=== PATIENT | female | born 1945 | race Caucasian/White ===

== ENCOUNTER 2021-07-27 11:54 | Emergency (ER) | payer MEDICARE, BC ==
[~2021-07-27] VITALS: Ht 167.6 cm; Wt 64.0 kg
--- NOTE | 2021-07-27 12:16 | NUR ---
[facility] GLF C/O RT WRIST PAIN, HEAD INJURY -KO. RATES PAIN 4/10. IN ROOM AIR AND DENIES SOB. RESPIRATION REGULAR AND UNLABORED. WILL CONTINUE T MONITOR THE PATIENT.
--- NOTE | 2021-07-27 12:18 | NUR ---
DR HOOK AT THE BEDSIDE
--- NOTE | 2021-07-27 12:43 | NUR ---
X-RAY TECH AT THE BEDSIDE
[2021-07-27] MEDS ORDERED: KETOROLAC TROMETHAMINE INJ 30 MG/ML VIAL ONE (12:52)
[2021-07-27] MEDS ORDERED: KETOROLAC TROMETHAMINE INJ 30 MG/ML VIAL IM ONE (13:00)
[2021-07-27] MEDS ORDERED: HYDR-4209 PO ×2 (13:33→14:03)
[2021-07-27 14:24] VITALS: BP 142/74
--- NOTE | 2021-07-27 14:24 | NUR ---
Patient discharged to home in stable condition. Written and verbal after care instructions given. Patient verbalizes understanding of instruction.
== END 2021-07-27 14:24 | disposition home or self-care (01) ==
LOC: ER 12:05
DX: S52.591A Other fractures of lower end of right radius, initial encounter for closed fracture (principal); J44.9 Chronic obstructive pulmonary disease, unspecified; J45.909 Unspecified asthma, uncomplicated; Z88.0 Allergy status to penicillin; Z79.891 Long term (current) use of opiate analgesic; W01.0XXA Fall on same level from slipping, tripping and stumbling without subsequent striking against object, initial encounter; Y93.89 Activity, other specified; Y92.89 Other specified places as the place of occurrence of the external cause; Y99.8 Other external cause status
CPT/HCPCS: 73080; 73110; 96372; 99284; J1885

== ENCOUNTER 2021-08-17 12:50 | Emergency (ER) | payer MEDICARE, BC ==
[~2021-08-17] VITALS: Ht 167.6 cm; Wt 64.0 kg
[~2021-08-17 12:50] MED LIST: HYDR-4209 PO
[2021-08-17 13:07] VITALS: BP 135/68
--- NOTE | 2021-08-17 14:00 | NUR ---
FOLLOW UP TO ER MD FOR PT EVAL.
--- NOTE | 2021-08-17 15:10 | NUR ---
CALLED DR. NASIM FIELDS @: UNABLE TO REACH .
--- NOTE | 2021-08-17 15:21 | NUR ---
Patient discharged to home in stable condition. Written and verbal after care instructions given. Patient verbalizes understanding of instruction.
== END 2021-08-17 15:21 | disposition home or self-care (01) ==
LOC: ER 12:53
DX: R20.2 Paresthesia of skin (principal); M79.89 Other specified soft tissue disorders; J44.9 Chronic obstructive pulmonary disease, unspecified; J45.909 Unspecified asthma, uncomplicated; Z88.0 Allergy status to penicillin; Z79.899 Other long term (current) drug therapy

== ENCOUNTER 2024-06-25 18:32 | Inpatient (IN) | payer MEDICARE, BC ==
[~2024-06-25] VITALS: Ht 170.2 cm; Wt 60.8 kg
[2024-06-25 19:39] LABS: BASOPHILS # (AUTO) 0.1 K/uL (0.0-0.2); BASOPHILS % (AUTO) 0.5 % (0.0-2.0); EOSINOPHILS % (AUTO) 0.2 % (0.0-6.0); HEMATOCRIT 38 % (33-45); HEMOGLOBIN 13.3 g/dL (11.5-14.8); LYMPHOCYTES # (AUTO) 0.7 K/uL (0.8-4.8); LYMPHOCYTES % (AUTO) 4.8 % (20.0-44.0); MEAN CORPUSCULAR HEMOGLOBIN 33 PG (26.0-33.0); MEAN CORPUSCULAR HGB CONC 35 g/dl (31.0-36.0); MEAN CORPUSCULAR VOLUME 95 fL (82-100); MONOCYTES # (AUTO) 0.8 K/uL (0.1-1.30); MONOCYTES % (AUTO) 5.9 % (2.0-12.0); NEUTROPHILS # (AUTO) 12.1 K/uL (1.8-8.9); NEUTROPHILS % (AUTO) 88.6 % (43.0-81.0); PLATELET COUNT (AUTO) 326 K/uL (150-450); RED CELL DISTRIBUTION WIDTH 13.2 % (11.5-15.0); WHITE BLOOD COUNT (AUTO) 13.7 K/uL (4.3-11.0)
[2024-06-25 19:54] LABS: CALCIUM, SERUM 8.8 mg/dL (8.5-10.1); CARBON DIOXIDE 29 mmol/L (21-32); CHLORIDE 90 mmol/L (98-107); CREATININE 0.6 mg/dL (0.6-1.3); GLUCOSE 154 mg/dL (74-106); POTASSIUM 3.6 mmol/L (3.5-5.1); SODIUM SERUM 123 mmol/L (136-145); UREA NITROGEN, BLOOD 8 mg/dL (7-18)
[2024-06-25 19:57] LABS: MAGNESIUM 2.2 mg/dL (1.8-2.4); PHOSPHORUS 3.5 mg/dL (2.5-4.9)
[2024-06-25 20:09] LABS: ALANINE AMINOTRANSFERASE 20 U/L (12-78); ALBUMIN 3.4 g/dL (3.4-5.0); ALKALINE PHOSPHATASE 116 U/L (46-116); ASPARTATE AMINOTRANSFERASE 17 U/L (15-37); BILIRUBIN,DIRECT 0.3 mg/dL (0.0-0.2); BILIRUBIN,TOTAL 0.8 mg/dL (0.2-1.0); NT-PRO BNP 67 pg/mL (0-125); TOTAL PROTEIN, SERUM 5.9 g/dL (6.4-8.2)
[2024-06-25] MEDS ORDERED: LEVOFLOXACIN 750 MG /D5W 150ML 150 ML IV ONE (20:32)
[2024-06-25] MEDS ORDERED: METRONIDAZOLE 500MG/ NS 100ML 100 ML IV ONE (20:32)
[2024-06-25] MEDS: METRONIDAZOLE 500MG/ NS 100ML 100 ML IV ONE (20:33)
[2024-06-25] MEDS: LEVOFLOXACIN 750 MG /D5W 150ML 150 ML IV ONE (20:33)
[2024-06-25] MEDS: IV NS 0.9% 500 ML BAG IV ONE (20:33)
[2024-06-25 21:22] LABS: APPEARANCE,URINE CLOUDY (CLEAR); BILIRUBIN,URINE NEGATIVE (NEGATIVE); BLOOD, URINE TRACE-INTA Ery/uL (NEGATIVE); COLOR,URINE YELLOW (YELLOW); KETONES,URINE NEGATIVE (NEGATIVE); LEUKOCYTE ESTERASE ,URINE NEGATIVE (NEGATIVE); NITRITE, URINE NEGATIVE (NEGATIVE); PROTEIN,URINE NEGATIVE (NEGATIVE); UGLUCOSE NEGATIVE (NEGATIVE)
[2024-06-25 21:28] LABS: WBC,URINE 0-2 /HPF (0-3)
[2024-06-25 21:29] LABS: ADD URINE CULTURE NO; BACTERIA,URINE None seen /HPF (None Seen); URINE AMORPHOUS PHOSPHATES Moderate /HPF (None Seen)
[2024-06-25 22:15] VITALS: BP 140/66; TEMP 98.1; O2SAT 97
[2024-06-25 22:30] VITALS: BP 140/66; TEMP 98.1; O2SAT 97
[2024-06-25] MEDS ORDERED: Z GUARD REMEDY 4 OZ OINT TP PRN (22:30)
[2024-06-25] MEDS ORDERED: MAG HYDROX/AL HYDROX/SIMETH 30 ML UDC PO PRN (22:30)
[2024-06-25] MEDS ORDERED: MAGNESIUM HYDROXIDE 30 ML UDC PO PRN (22:30)
[2024-06-25] MEDS: ZOLPIDEM TARTRATE 5 MG TABLET PO PRN (23:16)
[2024-06-26] MEDS ORDERED: METRONIDAZOLE 500MG/ NS 100ML 100 ML IV ONE (00:14)
[2024-06-26] MEDS: IV NS 0.9% 1,000 ML IV PRN (04:44)
[2024-06-26] MEDS: METRONIDAZOLE 500MG/ NS 100ML 500 MG in PREMIX 1 EA IV SCH (04:44)
[2024-06-26 05:00] VITALS: BP 142/79; TEMP 97.5; O2SAT 95
[2024-06-26] MEDS: PANTOPRAZOLE 40 MG TABLET.DR PO SCH (07:34)
[2024-06-26] MEDS ORDERED: ARMO250T2 PO (07:51)
[2024-06-26] MEDS ORDERED: ATOR40TA PO (07:51)
[2024-06-26] MEDS ORDERED: CYAN50009 PO (07:51)
[2024-06-26] MEDS ORDERED: VILA40TA PO (07:51)
[2024-06-26] MEDS ORDERED: FOLI0.8T3 PO (07:51)
[2024-06-26 07:56] LABS: BASOPHILS % (AUTO) 0.1 % (0.0-2.0); EOSINOPHILS % (AUTO) 0.5 % (0.0-6.0); HEMATOCRIT 37 % (33-45); HEMOGLOBIN 12.7 g/dL (11.5-14.8); LYMPHOCYTES # (AUTO) 1.1 K/uL (0.8-4.8); LYMPHOCYTES % (AUTO) 10.9 % (20.0-44.0); MEAN CORPUSCULAR HEMOGLOBIN 33 PG (26.0-33.0); MEAN CORPUSCULAR HGB CONC 35 g/dl (31.0-36.0); MEAN CORPUSCULAR VOLUME 95 fL (82-100); MONOCYTES # (AUTO) 0.7 K/uL (0.1-1.30); NEUTROPHILS # (AUTO) 8.6 K/uL (1.8-8.9); NEUTROPHILS % (AUTO) 81.5 % (43.0-81.0); PLATELET COUNT (AUTO) 305 K/uL (150-450); RED BLOOD CELL COUNT(AUTO) 3.85 MIL/uL (4.0-5.2); RED CELL DISTRIBUTION WIDTH 13.1 % (11.5-15.0); WHITE BLOOD COUNT (AUTO) 10.5 K/uL (4.3-11.0)
[2024-06-26 08:10] LABS: CALCIUM, SERUM 8.7 mg/dL (8.5-10.1); CREATININE 0.5 mg/dL (0.6-1.3); MAGNESIUM 2.1 mg/dL (1.8-2.4); POTASSIUM 3.7 mmol/L (3.5-5.1)
[2024-06-26 08:54] VITALS: BP 127/64; TEMP 97.9; O2SAT 98
[2024-06-26] MEDS ORDERED: CYANOCOBALAMIN 5000 MCG PO SCH (12:00)
[2024-06-26 12:25] VITALS: BP 135/55; TEMP 98.4; O2SAT 97
[2024-06-26] MEDS: ATORVASTATIN 40 MG TABLET PO SCH (12:51)
[2024-06-26 16:21] VITALS: BP 142/66; TEMP 98.4; O2SAT 94
[2024-06-26] MEDS ORDERED: ESZO3TAB27 PO (16:43)
[2024-06-26] MEDS: VILAZODONE HYDROCHLORIDE 40 MG PO SCH (18:21)
[2024-06-26 20:00] VITALS: BP 142/67; TEMP 97.9; O2SAT 97
[2024-06-26 21:13] LABS: CALCIUM, SERUM 8.4 mg/dL (8.5-10.1); CREATININE 0.5 mg/dL (0.6-1.3); MAGNESIUM 1.9 mg/dL (1.8-2.4); PHOSPHORUS 3.5 mg/dL (2.5-4.9); POTASSIUM 3.6 mmol/L (3.5-5.1)
[2024-06-26 21:27] LABS: THYROID STIMULATING HORMONE 1.35 uIU/mL (0.358-3.74); URIC ACID 1.4 mg/dL (2.6-7.2)
[2024-06-26] MEDS: LEVOFLOXACIN 500 MG /D5W 100ML 500 MG in PREMIX 1 EA IV SCH (21:55)
[2024-06-26 21:58] LABS: OSMOLALITY,SERUM 258 mOS/kg (278-305); OSMOLALITY,URINE 484 mOS/kg (340-1090)
[2024-06-27] VITALS: BP 135/63; TEMP 98.2; O2SAT 96
[2024-06-27 04:00] VITALS: BP 144/62; TEMP 98.2; O2SAT 95
[2024-06-27 08:00] VITALS: BP 145/62; TEMP 98.2; O2SAT 96
[2024-06-27] MEDS: ARMODAFINIL 250 MG PO SCH (08:26)
[2024-06-27] MEDS: FOLIC ACID 1 MG TABLET PO SCH (08:26)
[2024-06-27 10:46] LABS: BASOPHILS % (AUTO) 0.3 % (0.0-2.0); EOSINOPHILS % (AUTO) 0.5 % (0.0-6.0); HEMATOCRIT 37 % (33-45); LYMPHOCYTES % (AUTO) 10.8 % (20.0-44.0); MEAN CORPUSCULAR HEMOGLOBIN 33 PG (26.0-33.0); MEAN CORPUSCULAR HGB CONC 35 g/dl (31.0-36.0); MEAN CORPUSCULAR VOLUME 94 fL (82-100); MONOCYTES # (AUTO) 0.5 K/uL (0.1-1.30); MONOCYTES % (AUTO) 5.9 % (2.0-12.0); NEUTROPHILS # (AUTO) 7.4 K/uL (1.8-8.9); NEUTROPHILS % (AUTO) 82.5 % (43.0-81.0); PLATELET COUNT (AUTO) 286 K/uL (150-450); RED BLOOD CELL COUNT(AUTO) 3.96 MIL/uL (4.0-5.2); RED CELL DISTRIBUTION WIDTH 13.1 % (11.5-15.0)
[2024-06-27 11:09] LABS: CALCIUM, SERUM 8.8 mg/dL (8.5-10.1); CREATININE 0.5 mg/dL (0.6-1.3); MAGNESIUM 1.8 mg/dL (1.8-2.4); POTASSIUM 3.2 mmol/L (3.5-5.1)
[2024-06-27] MEDS: SODIUM CHLORIDE 1000 MG TABLET PO SCH (12:26)
[2024-06-27] MEDS: ONDANSETRON HCL/PF 4 MG/2 ML VIAL IVP PRN (12:26)
[2024-06-27] MEDS: POTASSIUM CHLORIDE 20 MEQ TAB.PRT.SR PO SCH (14:24)
[2024-06-27 16:00] VITALS: BP 147/63; TEMP 97.9; O2SAT 97
[2024-06-27] MEDS: ENSURE ENLIVE CHOC 237 ML CAN PO SCH (18:00)
[2024-06-27 20:00] VITALS: BP 150/71; TEMP 98.1; O2SAT 95
[2024-06-27 23:06] VITALS: BP 150/71; TEMP 98.1; O2SAT 97
[2024-06-28] VITALS: BP 137/78; TEMP 98.6; O2SAT 95
[2024-06-28 04:00] VITALS: BP 135/57; TEMP 99.3; O2SAT 100
[2024-06-28 07:58] LABS: BASOPHILS % (AUTO) 0.2 % (0.0-2.0); EOSINOPHILS # (AUTO) 0.1 K/uL (0.0-0.7); EOSINOPHILS % (AUTO) 1.2 % (0.0-6.0); HEMATOCRIT 34 % (33-45); HEMOGLOBIN 12.5 g/dL (11.5-14.8); LYMPHOCYTES # (AUTO) 1.3 K/uL (0.8-4.8); LYMPHOCYTES % (AUTO) 18.3 % (20.0-44.0); MEAN CORPUSCULAR HEMOGLOBIN 34 PG (26.0-33.0); MEAN CORPUSCULAR HGB CONC 37 g/dl (31.0-36.0); MEAN CORPUSCULAR VOLUME 94 fL (82-100); MONOCYTES # (AUTO) 0.7 K/uL (0.1-1.30); MONOCYTES % (AUTO) 9.5 % (2.0-12.0); NEUTROPHILS # (AUTO) 5.1 K/uL (1.8-8.9); NEUTROPHILS % (AUTO) 70.8 % (43.0-81.0); PLATELET COUNT (AUTO) 270 K/uL (150-450); RED BLOOD CELL COUNT(AUTO) 3.65 MIL/uL (4.0-5.2); RED CELL DISTRIBUTION WIDTH 13.2 % (11.5-15.0); WHITE BLOOD COUNT (AUTO) 7.1 K/uL (4.3-11.0)
[2024-06-28 08:00] VITALS: BP 140/68; TEMP 98.2; O2SAT 95
[2024-06-28] MEDS: NUVIGIL 250 MG PO SCH (08:13)
[2024-06-28] MEDS: VIIBRYD 40 MG PO SCH (08:13)
[2024-06-28] MEDS: LOSARTAN POTASSIUM 50 MG TABLET PO SCH (08:14)
[2024-06-28 08:18] LABS: BILIRUBIN,TOTAL 0.8 mg/dL (0.2-1.0); CALCIUM, SERUM 8.5 mg/dL (8.5-10.1); CREATININE 0.5 mg/dL (0.6-1.3); MAGNESIUM 1.9 mg/dL (1.8-2.4); PHOSPHORUS 3.1 mg/dL (2.5-4.9); POTASSIUM 3.7 mmol/L (3.5-5.1); TOTAL PROTEIN, SERUM 5.6 g/dL (6.4-8.2)
[2024-06-28 14:27] LABS: CALCIUM, SERUM 8.5 mg/dL (8.5-10.1); CREATININE 0.5 mg/dL (0.6-1.3); POTASSIUM 3.4 mmol/L (3.5-5.1)
[2024-06-28 16:00] VITALS: BP 144/76; TEMP 97.9; O2SAT 94
[2024-06-28] MEDS: POTASSIUM CHLORIDE 20 MEQ TAB.PRT.SR PO ONE (16:01)
[2024-06-28] MEDS: SODIUM CHLORIDE 1000 MG TABLET PO SCH (16:01)
[2024-06-28 20:00] VITALS: BP 151/75; TEMP 97.7; O2SAT 96
[2024-06-29] VITALS (7 sets, daily range): BP systolic 107–154; BP diastolic 60–78; TEMP 97.5–98.2; O2SAT 95–97
[2024-06-29] MEDS: ACETAMINOPHEN 325 MG TABLET PO PRN (00:01)
[2024-06-29] MEDS: diphenhydrAMINE HCL 25 MG CAPSULE PO ONE (01:40)
[2024-06-29 07:23] LABS: BASOPHILS % (AUTO) 0.4 % (0.0-2.0); EOSINOPHILS # (AUTO) 0.1 K/uL (0.0-0.7); HEMATOCRIT 34 % (33-45); HEMOGLOBIN 12.1 g/dL (11.5-14.8); LYMPHOCYTES # (AUTO) 1.5 K/uL (0.8-4.8); LYMPHOCYTES % (AUTO) 22.2 % (20.0-44.0); MEAN CORPUSCULAR HEMOGLOBIN 33 PG (26.0-33.0); MEAN CORPUSCULAR HGB CONC 35 g/dl (31.0-36.0); MEAN CORPUSCULAR VOLUME 93 fL (82-100); MONOCYTES # (AUTO) 0.6 K/uL (0.1-1.30); MONOCYTES % (AUTO) 8.2 % (2.0-12.0); NEUTROPHILS # (AUTO) 4.7 K/uL (1.8-8.9); NEUTROPHILS % (AUTO) 68.2 % (43.0-81.0); PLATELET COUNT (AUTO) 264 K/uL (150-450); RED BLOOD CELL COUNT(AUTO) 3.67 MIL/uL (4.0-5.2); RED CELL DISTRIBUTION WIDTH 13.3 % (11.5-15.0); WHITE BLOOD COUNT (AUTO) 6.8 K/uL (4.3-11.0)
[2024-06-29 08:24] LABS: CALCIUM, SERUM 8.7 mg/dL (8.5-10.1); CARBON DIOXIDE 26 mmol/L (21-32); CHLORIDE 87 mmol/L (98-107); CREATININE 0.5 mg/dL (0.6-1.3); GLUCOSE 111 mg/dL (74-106); MAGNESIUM 1.8 mg/dL (1.8-2.4); PHOSPHORUS 3.2 mg/dL (2.5-4.9); UREA NITROGEN, BLOOD 5 mg/dL (7-18)
[2024-06-29 08:40] LABS: POTASSIUM 3.5 mmol/L (3.5-5.1); SODIUM SERUM 121 mmol/L (136-145)
[2024-06-29 15:11] LABS: CALCIUM, SERUM 8.4 mg/dL (8.5-10.1); CREATININE 0.5 mg/dL (0.6-1.3)
[2024-06-29 15:30] LABS: POTASSIUM 3.5 mmol/L (3.5-5.1)
[2024-06-29] MEDS: IV Sodium Chloride 3% 500 ML 500 ML IV PRN (16:14)
[2024-06-29] MEDS: DEMECLOCYCLINE HCL 300 MG TABLET PO SCH (20:52)
[2024-06-29 23:43] LABS: CALCIUM, SERUM 8.4 mg/dL (8.5-10.1); CREATININE 0.4 mg/dL (0.6-1.3); POTASSIUM 3.3 mmol/L (3.5-5.1)
[2024-06-30] VITALS: BP 141/72; TEMP 98.2; O2SAT 95
[2024-06-30] MEDS: POTASSIUM CHLORIDE 20 MEQ TAB.PRT.SR PO ONE (01:15)
[2024-06-30] MEDS: diphenhydrAMINE HCL 25 MG CAPSULE PO ONE (02:31)
[2024-06-30 06:48] LABS: CALCIUM, SERUM 8.5 mg/dL (8.5-10.1); CREATININE 0.6 mg/dL (0.6-1.3); POTASSIUM 3.9 mmol/L (3.5-5.1)
[2024-06-30 08:00] VITALS: BP 124/69; TEMP 97.9; O2SAT 97
[2024-06-30 12:00] VITALS: BP 133/67; TEMP 98.6; O2SAT 96
[2024-06-30] MEDS: SODIUM CHLORIDE 1000 MG TABLET PO SCH (12:46)
[2024-06-30] MEDS ORDERED: LEVO250T59 PO (14:32)
[2024-06-30] MEDS ORDERED: METR500T PO (14:32)
[2024-06-30] MEDS ORDERED: SODI100037 PO (14:32)
[2024-06-30] MEDS ORDERED: DEME150T13 PO (14:32)
[2024-06-30] MEDS ORDERED: LEVOFLOXACIN (250MG) 250 MG TABLET PO SCH (21:00)
== END 2024-06-30 15:30 | disposition home health service (06) | DRG 372 ==
LOC: ER 18:34 → TELE 21:51
PROVIDERS: ADMIT Nurse Practitioner Family; ATTEND Nurse Practitioner Acute Care
DX: A04.9 Bacterial intestinal infection, unspecified (principal); C34.11 Malignant neoplasm of upper lobe, right bronchus or lung; E87.1 Hypo-osmolality and hyponatremia; E86.0 Dehydration; Z20.822 Contact with and (suspected) exposure to COVID-19; E78.5 Hyperlipidemia, unspecified; J44.9 Chronic obstructive pulmonary disease, unspecified; J45.909 Unspecified asthma, uncomplicated; Z88.0 Allergy status to penicillin; E86.1 Hypovolemia; I10 Essential (primary) hypertension; F32.A Depression, unspecified; G47.00 Insomnia, unspecified; Z74.09 Other reduced mobility; F03.90 Unspecified dementia, unspecified severity, without behavioral disturbance, psychotic disturbance, mood disturbance, and anxiety; E87.6 Hypokalemia
CPT/HCPCS: 36415; 71045-TC; 80048-TC; 80053-TC; 80076-TC; 81001; 82533; 83735-TC; 83880; 83935-TC; 84100-TC; 84300-TC; 84443-TC; 84484-TC; 84550-TC; 85025-TC; 87040-TC; 89055; 97112-TC; 97116-TC; 97530-TC; A4216; A4223; G0378; J1956; J2405; J3490; J7030; J7040; Q0163